=== PATIENT | female | born 1985 | race African-American/Black ===

== ENCOUNTER 2019-09-19 19:31 | Emergency (ER) | payer BC ==
--- NOTE | 2019-09-19 20:28 | ER Document Report ---
HPI - HPI Patient complains to provider of: low back pain Time Seen by Provider: 09/19/19 20:10 Onset: Other - a few weeks Onset/Duration: Persistent Quality of pain: Achy Severity: Severe Pain Level: 4 Context: 33-year-old morbidly obese female with history of high blood pressure presents to the emergency department with complaints of low back pain for the last couple weeks. Denies trauma. Denies fever vomiting diarrhea. Denies pain with void denies urinary frequency. Denies trauma. Denies urinary bowel incontinence or retention. Denies history of Iv drug use or steroid use. Denies history of cancers. Reports her back just started hurting a couple weeks ago. She did see a provider nothing has been done. She reports she is unable to sleep at night due to the pain. 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 Associated Symptoms: None Exacerbated by: Denies Relieved by: Denies Similar symptoms previously: Yes Recently seen / treated by doctor: Yes - REPRODUCTIVE LMP: Nov Past Medical History - General Information source: Patient Last Menstrual Period: july - Social History Smoking Status: Never Smoker Chew tobacco use (# tins/day): No Drug Abuse: None Occupation: office Family History: None Patient has suicidal ideation: No Patient has homicidal ideation: No - Past Medical History Cardiac Medical History: Reports: Hx Hypertension Surgical Hx: Negative Vertical Provider Document - CONSTITUTIONAL Agree With Documented VS: Yes Exam Limitations: No Limitations General Appearance: WD/WN, No Apparent Distress - INFECTION CONTROL TRAVEL OUTSIDE OF THE [place] IN LAST 30 DAYS: No - HEENT HEENT: Atraumatic, Normocephalic - NECK Neck: Supple - RESPIRATORY Respiratory: Breath Sounds Normal, No Respiratory Distress - CARDIOVASCULAR Cardiovascular: Regular Rate, Regular Rhythm - GI/ABDOMEN Gastrointestinal: Abdomen Soft, Abdomen Non-Tender - BACK Back: Normal Inspection - No obvious deformity patient complains of low back pain good distal movement no erythema no swelling no warmth. negative: CVA Tenderness-Right, CVA Tenderness-Left - MUSCULOSKELETAL/EXTREMETIES Musculoskeletal/Extremeties: TORRI MCPHERSON - NEURO Level of Consciousness: Awake, Alert, Appropriate Motor/Sensory: No Motor Deficit - DERM Integumentary: Warm, Dry Adult Front & Back Diagram: 1 - Patient reports low back pain across the entire low back. Course - Re-evaluation Re-evalutation: 09/19/19 21:13 33-year-old female presents with complaints of low back pain for the past couple weeks. Denies fever vomiting diarrhea. Denies pain with void. Reports she is woke up 1 day and it was hurting. Denies trauma. Urinalysis done to evaluate for and possible UTI which were both negative. I observed patient walking around ambulating without any problems. low suspicion for any meningitis, fracture, expanding/ruptured AAA, cauda equina syndrome, epidural mass lesion/abscess, herniated disc causing severe spinal stenosis, or other systemic infection at this time. Patient is aware that this condition can change from initial presentation and that she needs monitor symptoms closely for any acute changes. Urine Color YELLOW 09/19/19 20:25 Urine Appearance CLEAR 09/19/19 20:25 Urine pH 5.0 (5.0-9.0) 09/19/19 20:25 Ur Specific [place] 1.021 09/19/19 20:25 Urine Protein NEGATIVE mg/dL (NEGATIVE) 09/19/19 20:25 Urine Glucose (UA) 50 mg/dL (NEGATIVE) H 09/19/19 20:25 Urine Ketones NEGATIVE mg/dL (NEGATIVE) 09/19/19 20:25 Urine Blood SMALL (NEGATIVE) H 09/19/19 20:25 Urine Nitrite NEGATIVE (NEGATIVE) 09/19/19 20:25 Ur Leukocyte Esterase NEGATIVE (NEGATIVE) 09/19/19 20:25 Urine WBC (Auto) 2 /HPF 09/19/19 20:25 Urine RBC (Auto) 2 /HPF 09/19/19 20:25 09/19/19 22:06 - Vital Signs Vital signs: Temp Pulse Resp BP Pulse Ox 97.8 F 85 18 170/90 H 98 09/19/19 20:17 09/19/19 20:17 09/19/19 20:17 09/19/19 20:17 09/19/19 20:17 Discharge - Discharge Clinical Impression: Low back pain Qualifiers: Chronicity: acute Back pain laterality: bilateral Sciatica presence: without sciatica Qualified Code(s): M54.5 - Low back pain Condition: Stable Disposition: HOME, SELF-CARE Instructions: Use of Lekk-Zsu-Hvbetsa Ibuprofen ([facility]), Low Back Pain ([facility]), Muscle Relaxers ([facility]) Additional Instructions: *You have been evaluated for back pain *Take medication as prescribed *Rest , avoid heavy lifting *Follow up with a primary care provider within 1 week for recheck *Return to ED for worsening condition, changes, needs Monitor your blood pressure. Your blood pressure was elevated today. This may be because you were anxious, in pain or because you need medication. It is important to follow up with your primary care provider for full evaluation. Prescriptions: Cyclobenzaprine HCl [Flexeril 10 Mg Tablet] 10 mg PO TID #15 tablet Forms: Elevated Blood Pressure
[2019-09-19 20:52] LABS: APPEARANCE,URINE CLEAR; BILIRUBIN,URINE NEGATIVE (NEGATIVE); COLOR,URINE YELLOW; GLUCOSE, URINE 50 mg/dL (NEGATIVE); KETONES,URINE NEGATIVE (NEGATIVE); LEUKOCYTE ESTERASE,URINE NEGATIVE (NEGATIVE); NITRITE,URINE NEGATIVE (NEGATIVE); PROTEIN,URINE NEGATIVE (NEGATIVE); URINE SPECIFIC GRAVITY 1.021; UROBILINOGEN,URINE NEGATIVE mg/dL (<2.0)
[2019-09-19 21:41] VITALS: BP 160/82
== END 2019-09-19 21:41 | disposition home or self-care (01) ==
LOC: ER 19:31
DX: M54.5 Low back pain (principal)
CPT/HCPCS: 81001; 81025; 99283

== ENCOUNTER 2019-09-20 22:14 | Emergency (ER) | payer BC ==
[2019-09-21] MEDS ORDERED: FENTANYL CITRATE INJ/PF 100 MCG/2 ML AMPUL IV ONE (01:27)
[2019-09-21 01:31] LABS: ABSOLUTE EOSINOPHILS # (AUTO) 0.1 10^3/uL (0.0-0.6); ABSOLUTE LYMPHOCYTES (AUTO) 1.2 10^3/uL (0.5-4.7); ABSOLUTE MONOCYTES (AUTO) 0.5 10^3/uL (0.1-1.4); ABSOLUTE NEUT (AUTO) 6.6 10^3/uL (1.7-8.2); BASOPHILS % (AUTO) 0.4 % (0-2); EOSINOPHILS % (AUTO) 1.2 % (0-6); HEMATOCRIT 34.4 % (36.0-47.0); LYMPHOCYTES % (AUTO) 13.9 % (13-45); MEAN CORPUSCULAR HEMOGLOBIN 25.7 pg (27.0-33.4); MEAN CORPUSCULAR HGB CONC 31.9 g/dL (32.0-36.0); MEAN CORPUSCULAR VOLUME 81 fl (80-97); MONOCYTES % (AUTO) 6.3 % (3-13); PLATELET COUNT 329 10^3/uL (150-450); RED BLOOD COUNT 4.27 10^6/uL (3.72-5.28); RED CELL DISTRIBUTION WIDTH 17.4 % (11.5-14.0); SEGMENTED NEUTROPHILS % (AUTO) 78.2 % (42-78); TOTAL CELLS COUNTED % (AUTO) 100 %; WHITE BLOOD COUNT 8.4 10^3/uL (4.0-10.5)
[2019-09-21 01:42] LABS: ALBUMIN 3.7 g/dL (3.5-5.0); ALKALINE PHOSPHATASE 60 U/L (38-126); ANION GAP 7 (5-19); ASPARTATE AMINO TRANSFERASE 22 U/L (14-36); BILIRUBIN,DIRECT 0.1 mg/dL (0.0-0.4); BILIRUBIN,TOTAL 0.8 mg/dL (0.2-1.3); BLOOD UREA NITROGEN 9 mg/dL (7-20); CARBON DIOXIDE 28 mmol/L (22-30); CHLORIDE 103 mmol/L (98-107); GLUCOSE 180 mg/dL (75-110); POTASSIUM 4.1 mmol/L (3.6-5.0); TOTAL PROTEIN 7.1 g/dL (6.3-8.2)
[2019-09-21 02:46] LABS: APPEARANCE,URINE CLOUDY; BILIRUBIN,URINE NEGATIVE (NEGATIVE); COLOR,URINE YELLOW; GLUCOSE, URINE NEGATIVE (NEGATIVE); KETONES,URINE NEGATIVE (NEGATIVE); LEUKOCYTE ESTERASE,URINE MODERATE (NEGATIVE); NITRITE,URINE NEGATIVE (NEGATIVE); PROTEIN,URINE NEGATIVE (NEGATIVE); URINE SPECIFIC GRAVITY 1.018; UROBILINOGEN,URINE NEGATIVE mg/dL (<2.0)
--- NOTE | 2019-09-21 03:17 | RADIOLOGY REPORT (SQ) ---
EXAM DESCRIPTION: [facility]: CT ABDOMEN PELVIS WITH IV CONTRAST CLINICAL HISTORY: 33 years Female; Abdominal pain TECHNIQUE: CT of the abdomen and pelvis using intravenous contrast. All CT scans at this facility use dose modulation, iterative reconstruction, and/or weight based dosing when appropriate to reduce radiation dose to as low as reasonably achievable. COMPARISON: None. FINDINGS: Abdomen: Liver:No focal lesions. No intrahepatic ductal distention. Gallbladder:Nondistended Pancreas:Within normal limits Spleen:Within normal limits Right kidney:No hydronephrosis. No focal lesion. Left kidney:No hydronephrosis. No focal lesion. Adrenal glands:Within normal limits Vascular structures:Within normal limits Pelvis: Small bowel:No significant distention. Appendix:Within normal limits Colon:No distention or acute pericolonic edema. No free intraperitoneal fluid or air. Bones: No acute bone findings. Bladder: Unremarkable. Uterus: Endometrial canal approximately 2 cm, somewhat enlarged. There are several subtle myometrial hypodensities, suspicious for fibroids. Left ovary: Low-density lesion 3.7 cm diameter, likely cyst. No adjacent edema. No right adnexal enlargement. IMPRESSION: 1. 3.7 cm low-density left ovarian lesion, likely cyst. No follow-up imaging is indicated, unless there is clinical concern for ovarian torsion. 2. Thickened endometrial canal, likely secretory phase. Please correlate with LMP. There are likely several uterine fibroids. 3. Otherwise unremarkable CT of the abdomen and pelvis.
[2019-09-21 03:18] VITALS: BP 157/72
[2019-09-21] MEDS ORDERED: HYDROCODONE/ACETAMINOPHEN 5-325 MG (6 TAB/ER DISP) PO PRN (03:47)
[2019-09-21] MEDS ORDERED: CEPHALEXIN 500 MG CAPSULE PO ONE (03:47)
[2019-09-21] MEDS ORDERED: ONDANSETRON ODT 4 MG TAB (6 TAB/ER DISP) PO PRN (03:47)
--- NOTE | 2019-09-21 03:51 | ER Document Report ---
ED GI/ - General Chief Complaint: Abdominal Pain Stated Complaint: ABDOMINAL PAIN Time Seen by Provider: 09/21/19 02:57 Notes: Patient is a 33-year-old female that comes emergency department for chief complaint of abdominal pain. Pain is on both sides but worse in the left lower abdomen. Pain is intermittent, she denies nausea, vomiting, fever/chills, vaginal bleeding or discharge. She denies dysuria. She also states the skin over the lower abdomen is starting to get red, irritated, and she is worried it is getting infected. She was seen yesterday for flank pain and prescribed Flexeril. Past medical history of hypertension, tonsillectomy, type 2 diabetes, obesity. She also states she missed her previous menstrual cycle. TRAVEL OUTSIDE OF THE [place] IN LAST 30 DAYS: No - Related Data Allergies/Adverse Reactions: lisinopril Allergy (Verified 09/19/19 20:09) Home Medications: Glipazide. Lasix Past Medical History - General Information source: Patient - Social History Smoking Status: Never Smoker Frequency of alcohol use: None Drug Abuse: None Lives with: Family Family History: None Patient has suicidal ideation: No Patient has homicidal ideation: No - Past Medical History Cardiac Medical History: Reports: Hx Hypertension Review of Systems - Review of Systems Constitutional: No symptoms reported EENT: No symptoms reported Cardiovascular: No symptoms reported Respiratory: No symptoms reported Gastrointestinal: See HPI Genitourinary: No symptoms reported Female Genitourinary: No symptoms reported Musculoskeletal: No symptoms reported Skin: No symptoms reported Hematologic/Lymphatic: No symptoms reported Neurological/Psychological: No symptoms reported Physical Exam - Vital signs Vitals: Temp Pulse Resp BP Pulse Ox 99.2 F 88 24 H 176/96 H 100 09/20/19 22:36 09/20/19 22:36 09/20/19 22:36 09/20/19 22:36 09/20/19 22:36 - Notes Notes: GENERAL: Alert, interacts well. No acute distress. HEAD: Normocephalic, atraumatic. EYES: Pupils equal, round, and reactive to light. Extraocular movements intact. ENT: Oral mucosa moist, tongue midline. Oropharynx unremarkable. Airway patent. LUNGS: Clear to auscultation bilaterally, no wheezes, rales, or rhonchi. No respiratory distress. HEART: Regular rate and rhythm. No murmur ABDOMEN: Generalized lower abdominal tenderness, equal bilaterally. No guarding or rigidity. GENITOURINARY: Deferred EXTREMITIES: Moves all 4 extremities spontaneously. No edema, normal radial and dorsalis pedis pulses bilaterally. No cyanosis. BACK: no cervical, thoracic, lumbar midline tenderness. No saddle anesthesia, normal distal neurovascular exam. Moves all extremities in full range of motion. NEUROLOGICAL: Alert and oriented x3. Normal speech. Cranial nerves II through XII grossly intact. PSYCH: Normal affect, normal mood. SKIN: Lower abdomen with an area over the left aspect just above the groin which is mildly erythematous and tender, no induration or fluctuance, possible mild folliculitis versus cellulitis. Course - Re-evaluation Re-evalutation: Patient calm and well-appearing on evaluation. She has generalized abdominal tenderness in the mid to lower abdomen on both sides. Nonspecific. No guarding. No rigidity. Bowel sounds present. Vital signs unremarkable other than hypertension which is chronic. She has no back symptoms today. No fever. There is an area over the lower abdomen which appears to be mild folliculitis versus early developing cellulitis but no induration or fluctuance is noted. Provided with Keflex after discussion. CBC, chemistry, urinalysis unremarkable. CAT scan imaging performed from triage shows left-sided ovarian cyst, uterine fibroids, otherwise unremarkable. I discussed with patient. Based on her exam I have a low suspicion of torsion, we did discuss ultrasound but this was deferred. I discussed details of uterine fibroids and cyst, recommendations, TECHNOLOGY RESOURCE TEACHER follow-up, and return precautions. Patient states appreciation and agreement. Stable at time of discharge. - Vital Signs Vital signs: Temp Pulse Resp BP Pulse Ox 98.7 F 75 20 157/72 H 97 09/21/19 03:17 09/21/19 03:17 09/21/19 03:17 09/21/19 03:17 09/21/19 03:17 - Laboratory Result Diagrams: 09/21/19 01:12 09/21/19 01:12 Laboratory results interpreted by me: 09/21/19 09/21/19 09/21/19 01:12 01:12 02:30 Hgb 11.0 L Hct 34.4 L MCH 25.7 L MCHC 31.9 L RDW 17.4 H Seg Neutrophils % 78.2 H Glucose 180 H Urine Blood LARGE H Ur Leukocyte Esterase MODERATE H Discharge - Discharge Clinical Impression: Abdominal pain Qualifiers: Abdominal location: lower abdomen, unspecified Qualified Code(s): R10.30 - Lower abdominal pain, unspecified Uterine fibroid Qualifiers: Uterine leiomyoma location: unspecified location Qualified Code(s): D25.9 - Leiomyoma of uterus, unspecified Ovarian cyst Qualifiers: Laterality: left Qualified Code(s): N83.202 - Unspecified ovarian cyst, left side Condition: Stable Disposition: HOME, SELF-CARE Additional Instructions: There is a cyst on your left ovary, this appears to be a simple cyst and should simply resolve with time, take the provided pain medicine if needed. This medication can make you constipated, you have been provided with a stool softener that I can recommend as well. There are uterine fibroids noted on your uterus, please follow-up with TECHNOLOGY RESOURCE TEACHER for additional evaluation for abdominal pain and irregular menstrual cycles because of this. You can take the Toradol if needed for pain. There is a borderline folliculitis over the lower abdomen as well, take Keflex antibiotics as prescribed to completion. Return if you worsen including vomiting, fever, severe worsening pain, or any other concerning or worsening symptoms. Prescriptions: Ketorolac Tromethamine [Toradol 10 mg Tablet] 10 mg PO Q8HP PRN #24 tablet PRN Reason: Cephalexin Monohydrate [Keflex 500 mg Capsule] 500 mg PO QID #28 capsule Polyethylene Glycol 3350 [Miralax Powder 17 gm/Packet] 1 packet PO DAILY #1 pkg Forms: Return to Work, Elevated Blood Pressure
== END 2019-09-21 04:11 | disposition home or self-care (01) ==
LOC: ER 22:14
DX: R10.32 Left lower quadrant pain (principal); N83.202 Unspecified ovarian cyst, left side; D25.9 Leiomyoma of uterus, unspecified; I10 Essential (primary) hypertension; E11.9 Type 2 diabetes mellitus without complications; E66.9 Obesity, unspecified
CPT/HCPCS: 99284; 96374; 36415; 83690; 84703; 85025; 80053; 81001; 74177; J3010

== ENCOUNTER → 2019-10-17 | Outpatient (CLI) | payer BC ==
[2019-10-17 09:10] LABS: ABSOLUTE EOSINOPHILS # (AUTO) 0.1 10^3/uL (0.0-0.6); ABSOLUTE LYMPHOCYTES (AUTO) 1.4 10^3/uL (0.5-4.7); ABSOLUTE MONOCYTES (AUTO) 0.3 10^3/uL (0.1-1.4); ABSOLUTE NEUT (AUTO) 3.5 10^3/uL (1.7-8.2); BASOPHILS % (AUTO) 0.3 % (0-2); EOSINOPHILS % (AUTO) 1.6 % (0-6); HEMATOCRIT 36.1 % (36.0-47.0); HEMOGLOBIN 11.7 g/dL (12.0-15.5); LYMPHOCYTES % (AUTO) 25.7 % (13-45); MEAN CORPUSCULAR HEMOGLOBIN 26.4 pg (27.0-33.4); MEAN CORPUSCULAR HGB CONC 32.4 g/dL (32.0-36.0); MEAN CORPUSCULAR VOLUME 81 fl (80-97); MONOCYTES % (AUTO) 5.7 % (3-13); PLATELET COUNT 385 10^3/uL (150-450); RED BLOOD COUNT 4.45 10^6/uL (3.72-5.28); RED CELL DISTRIBUTION WIDTH 17.9 % (11.5-14.0); SEGMENTED NEUTROPHILS % (AUTO) 66.7 % (42-78); TOTAL CELLS COUNTED % (AUTO) 100 %; WHITE BLOOD COUNT 5.3 10^3/uL (4.0-10.5)
[2019-10-17 09:37] LABS: ALBUMIN 4.2 g/dL (3.5-5.0); ALKALINE PHOSPHATASE 65 U/L (38-126); ANION GAP 9 (5-19); ASPARTATE AMINO TRANSFERASE 46 U/L (14-36); BILIRUBIN,TOTAL 0.6 mg/dL (0.2-1.3); BLOOD UREA NITROGEN 14 mg/dL (7-20); CALCIUM 9.8 mg/dL (8.4-10.2); CARBON DIOXIDE 25 mmol/L (22-30); CHLORIDE 105 mmol/L (98-107); GLUCOSE 207 mg/dL (75-110); POTASSIUM 4.5 mmol/L (3.6-5.0); TOTAL PROTEIN 7.4 g/dL (6.3-8.2)
--- NOTE | 2019-10-17 13:14 | RADIOLOGY REPORT (SQ) ---
EXAM DESCRIPTION: CHEST SINGLE VIEW COMPLETED DATE/TIME: 10/17/2019 8:17 am REASON FOR STUDY: OBESITY, UNSPECIFIED COMPARISON: None. EXAM PARAMETERS: NUMBER OF VIEWS: One view. TECHNIQUE: Single frontal radiographic view of the chest acquired. RADIATION DOSE: NA LIMITATIONS: None. FINDINGS: LUNGS AND PLEURA: No opacities, masses or pneumothorax. No pleural effusion. MEDIASTINUM AND HILAR STRUCTURES: No masses. Contour normal. HEART AND VASCULAR STRUCTURES: Heart normal in size. Normal vasculature. BONES: No acute findings. HARDWARE: None in the chest. OTHER: No other significant finding. IMPRESSION: NO ACUTE RADIOGRAPHIC FINDING IN THE CHEST. TECHNICAL DOCUMENTATION: JOB ID: [id number] [employer]- All Rights Reserved Reading location - IP/workstation name: [email or web address]
--- NOTE | 2019-10-17 18:37 | EKG REPORT ---
SEVERITY:- BORDERLINE ECG - SINUS RHYTHM BORDERLINE T ABNORMALITIES, INFERIOR LEADS : Confirmed by: Alena Lopez MD 17-Oct-2019 18:36:10
== END ==
LOC: OD 07:40
PROVIDERS: ATTEND Surgery
DX: E66.9 Obesity, unspecified (principal)
CPT/HCPCS: 36415; 71045; 80053; 84443; 85025; 93005; 93010

== ENCOUNTER 2019-12-03 18:18 | Emergency (ER) | payer BC ==
[2019-12-03 18:24] VITALS: BP 159/88
--- NOTE | 2019-12-03 18:34 | ER Document Report ---
ED Medical Screen (RME) - General Chief Complaint: Vaginal Bleeding Stated Complaint: WEAKNESS Time Seen by Provider: 12/03/19 18:27 Primary Care Provider: SAVITA CABA [Primary Care Provider] - Follow up as needed Information source: Patient Notes: Patient presents for dysfunctional uterine bleeding for the past 3 months. 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 Patient states she had been switched from Provera to a different medication in an attempt to stop the vaginal bleeding. Patient states she has had headache and dizziness and was told that she may need a transfusion or D&C and was advised to come here for further evaluation. I have greeted and performed a rapid initial assessment of this patient. A comprehensive ED assessment and evaluation of the patient, analysis of test results and completion of the medical decision making process will be conducted by additional ED providers. TRAVEL OUTSIDE OF THE [place] IN LAST 30 DAYS: No - Related Data Allergies/Adverse Reactions: lisinopril Allergy (Verified 12/03/19 18:24) Home Medications: fersega. metformin. agestin. atorvastatin. hydrocodone. toradol Past Medical History - Social History Frequency of alcohol use: None Drug Abuse: None - Past Medical History Cardiac Medical History: Reports: Hx Hypertension Physical Exam - Vital signs Vitals: Temp Pulse Resp BP Pulse Ox 99.0 F 88 16 159/88 H 100 12/03/19 18:23 12/03/19 18:23 12/03/19 18:23 12/03/19 18:23 12/03/19 18:23 - General General appearance: Appears well, Alert Notes: Patient pale - Cardiovascular Rhythm: No: Tachycardia Course - Vital Signs Vital signs: Temp Pulse Resp BP Pulse Ox 99.0 F 88 16 159/88 H 100 12/03/19 18:23 12/03/19 18:23 12/03/19 18:23 12/03/19 18:23 12/03/19 18:23 Doctor's Discharge - Discharge Referrals: SAVITA CABA [Primary Care Provider] - Follow up as needed
--- NOTE | 2019-12-03 19:16 | ER Document Report ---
ED GI/ - General Chief Complaint: Vaginal Bleeding Stated Complaint: WEAKNESS Time Seen by Provider: 12/03/19 18:27 Primary Care Provider: [facility] [Provider Group] - Follow up as needed SAVITA CABA [Primary Care Provider] - Follow up as needed Mode of Arrival: Ambulatory Information source: Patient Notes: 33-year-old female presented to ED for complaint of dysfunctional bleeding x3 months. She states she saw her captain/check airman last and had a biopsy in the office. She states she was switched from one Provera to a different kind of medication to stop the bleeding. She states she has had some headache and dizziness and was told by her ema that she may need a D&C or a transfusion that she should come to the emergency room and be evaluated. Patient is alert oriented respirations regular nonlabored speaking in full sentences. TRAVEL OUTSIDE OF THE [place] IN LAST 30 DAYS: No - HPI Patient complains to provider of: Pelvic pain, Vaginal bleeding Onset: Other Timing/Duration: Gradual - Ongoing, Intermittent Quality of pain: Sharp Severity at maximum: Moderate Severity in ED: Moderate Pain Level: 4 Location: Pelvis Vaginal bleeding (Compared to normal period): Spotting Associated symptoms: Other - Vaginal bleeding Exacerbated by: Movement, Walking Relieved by: Denies Similar symptoms previously: Yes Recently seen / treated by doctor: Yes - Related Data Allergies/Adverse Reactions: lisinopril Allergy (Verified 12/03/19 18:24) Home Medications: fersega. metformin. agestin. atorvastatin. hydrocodone. toradol Past Medical History - General Information source: Patient - Social History Smoking Status: Never Smoker Frequency of alcohol use: None Drug Abuse: None Lives with: Family Family History: None Patient has suicidal ideation: No Patient has homicidal ideation: No - Past Medical History Cardiac Medical History: Reports: Hx Hypertension Pulmonary Medical History: Reports: None EENT Medical History: Reports: None Neurological Medical History: Reports: None Endocrine Medical History: Reports: None Renal/ Medical History: Reports: Other - Dysfunctional bleeding Malignancy Medical History: Reports: None GI Medical History: Reports: None Musculoskeletal Medical History: Reports None Skin Medical History: Reports None Psychiatric Medical History: Reports: None Traumatic Medical History: Reports: None Infectious Medical History: Reports: None Surgical Hx: Negative Past Surgical History: Reports: None Review of Systems - Review of Systems Constitutional: No symptoms reported EENT: No symptoms reported Cardiovascular: No symptoms reported Respiratory: No symptoms reported Gastrointestinal: No symptoms reported Genitourinary: No symptoms reported Female Genitourinary: Heavy/abnormal periods, Other - Pelvic pain Musculoskeletal: No symptoms reported Skin: No symptoms reported Hematologic/Lymphatic: Anemia Neurological/Psychological: No symptoms reported -: Yes All other systems reviewed and negative Physical Exam - Vital signs Vitals: Temp Pulse Resp BP Pulse Ox 99.0 F 88 16 159/88 H 100 12/03/19 18:23 12/03/19 18:23 12/03/19 18:23 12/03/19 18:23 12/03/19 18:23 Interpretation: Normal - General General appearance: Appears well, Alert - HEENT Head: Normocephalic, Atraumatic Eyes: Normal Pupils: PERRL - Respiratory Respiratory status: No respiratory distress Chest status: Nontender Breath sounds: Normal Chest palpation: Normal - Cardiovascular Rhythm: Regular Heart sounds: Normal auscultation Murmur: No - Abdominal Inspection: Normal Distension: No distension Bowel sounds: Normal Tenderness: Nontender Organomegaly: No organomegaly - Genitourinary External exam: Normal Speculum exam: Normal Vaginal bleeding: Mild Bimanuel exam: Normal - Back Back: Normal, Nontender - Extremities General upper extremity: Normal inspection, Nontender, Normal color, Normal ROM, Normal temperature General lower extremity: Normal inspection, Nontender, Normal color, Normal ROM, Normal temperature, Normal weight bearing. No: Shanna's sign - Neurological Neuro grossly intact: Yes Cognition: Normal Orientation: AAOx4 Roscoe Coma Scale Eye Opening: Spontaneous Roscoe Coma Scale Verbal: Oriented Roscoe Coma Scale Motor: Obeys Commands Roscoe Coma Scale Total: 15 Speech: Normal Motor strength normal: LUE, RUE, LLE, RLE Sensory: Normal - Psychological Associated symptoms: Normal affect, Normal mood - Skin Skin Temperature: Warm Skin Moisture: Dry Skin Color: Normal Course - Re-evaluation Re-evalutation: 12/03/19 21:26 This patient was very angry because she did not get a blood transfusion for him hemoglobin of 9.6 she used very foul language throughout her stay and was very impatient and said that this hospital never gives proper treatment. She states she was sent over here for blood transfusion and we did not give her 1. She states she was told that she needed a D&C and we did not follow through with this. I did explain to her that at this time she had very minimal bleeding on her exam and she did not need a D&C at this time for what I could see and that her hemoglobin was not to the point that she would need a blood transfusion. She states that her blood hemoglobin was 9.6 the last time she saw someone and they told her she needed a transfusion I explained to her that we do not do transfusions when their hemoglobins are above 8 unless they are actively bleeding and she is not having a lot of blood at this time. She cursed and left before getting her written discharge papers. I did give her verbal instructions as well as the written reports of the lab work. She was very rude as she left the emergency room. - Vital Signs Vital signs: Temp Pulse Resp BP Pulse Ox 99.0 F 88 16 159/88 H 100 12/03/19 18:23 12/03/19 18:23 12/03/19 18:23 12/03/19 18:23 12/03/19 18:23 - Laboratory Result Diagrams: 12/03/19 19:53 12/03/19 19:53 Laboratory results interpreted by me: 12/03/19 12/03/19 19:53 19:53 Hgb 9.6 L Hct 30.1 L MCH 25.5 L RDW 16.2 H Chloride 108 H Discharge - Discharge Clinical Impression: Abnormal uterine bleeding, Mild anemia Condition: Stable Disposition: HOME, SELF-CARE Additional Instructions: VAGINAL BLEEDING: You are having an episode of abnormal bleeding. Causes of abnormal vaginal bleeding can include miscarriage or tubal , tumors such as cancer or benign fibroids, medication effects, or hormone imbalance. Testing can eliminate unsuspected , tumors, or infection as a cause. "Dysfunctional uterine bleeding" is due to hormone imbalance, and is especially common at times when the normal cycle is disturbed -- whether by recent , use of control pills or hormones, or impending menopause. If the bleeding is innocent, most commonly a short course of hormones is given to restore the uterus to normal. Sometimes, the normal menstrual cycle corrects itself naturally. Sometimes, brief hormone therapy, or even a D&C is required. Your physician will advise you. Treatment for anemia may be required if bleeding is severe. You should rest and avoid intercourse until the bleeding is controlled. Call the doctor or return for re-examination if you feel faint, have increasing pain, or have a major increase in the amount of bleeding. NORMAL EXAM AND WORKUP: At this time, except for vaginal bleeding, your examination and workup show no significant abnormality. No significant abnormal physical findings were noted. All laboratory, EKG, and imaging (x-ray, CT scans, ultrasound) studies that were ordered show no significant abnormality. Although your examination and all studies that were ordered showed no significant abnormal finding, there are no examinations and no studies that are 100% accurate. There is always the possibility that some abnormality could exist and not be detected with physical examination or within the limits and capabilities of laboratory and other studies. You should return or follow up as you were instructed on your visit today for further evaluation if your symptoms do not resolve. Continue your medications as prescribed by your LICENSE INSPECTOR. Your hemoglobin today was 9.6 and you do not need a blood transfusion at this time. Please follow-up with the LICENSE INSPECTOR and discuss with them your plan of care from here. There was very minimal bleeding on your exam today. FOLLOW-UP CARE: If you have been referred to a physician for follow-up care, call the physicians office for an appointment as you were instructed or within the next two days. If you experience worsening or a significant change in your symptoms (very heavy bleeding with large clots of blood, passage of tissue, more severe abdominal / pelvic pain or cramping, feeling faint or severe weakness, fever, etc.), notify the physician immediately or return to the Emergency Department at any time for re-evaluation. OBSTETRIC-GYNECOLOGIC (OB-LUMP INSPECTOR) PHYSICIANS IN [place]: [facility] [address] [place] [address] [phone] Forms: Elevated Blood Pressure Referrals: SAVITA CABA [Primary Care Provider] - Follow up as needed [facility] [Provider Group] - Follow up as needed
[2019-12-03 20:09] LABS: BACTERIA (WET MOUNT) 4+ BACTERIA SEEN; EPITHELIALS (WET MOUNT) 3+ EPITHELIALS SEEN; RBCS (WET MOUNT) 4+ RBCS SEEN; T.VAGINALIS (WET MOUNT) NO TRICHOMONAS SEEN; WBCS (WET MOUNT) 2+ WBCS SEEN; YEAST (WET MOUNT) NO YEAST SEEN
[2019-12-03 20:11] LABS: ABSOLUTE EOSINOPHILS # (AUTO) 0.1 10^3/uL (0.0-0.6); ABSOLUTE LYMPHOCYTES (AUTO) 2.2 10^3/uL (0.5-4.7); ABSOLUTE MONOCYTES (AUTO) 0.5 10^3/uL (0.1-1.4); ABSOLUTE NEUT (AUTO) 4.8 10^3/uL (1.7-8.2); BASOPHILS % (AUTO) 0.4 % (0-2); EOSINOPHILS % (AUTO) 1.8 % (0-6); HEMATOCRIT 30.1 % (36.0-47.0); HEMOGLOBIN 9.6 g/dL (12.0-15.5); LYMPHOCYTES % (AUTO) 28.6 % (13-45); MEAN CORPUSCULAR HEMOGLOBIN 25.5 pg (27.0-33.4); MEAN CORPUSCULAR VOLUME 80 fl (80-97); MONOCYTES % (AUTO) 6.8 % (3-13); PLATELET COUNT 412 10^3/uL (150-450); RED BLOOD COUNT 3.78 10^6/uL (3.72-5.28); RED CELL DISTRIBUTION WIDTH 16.2 % (11.5-14.0); SEGMENTED NEUTROPHILS % (AUTO) 62.4 % (42-78); TOTAL CELLS COUNTED % (AUTO) 100 %; WHITE BLOOD COUNT 7.7 10^3/uL (4.0-10.5)
[2019-12-03 20:32] LABS: ALBUMIN 4.1 g/dL (3.5-5.0); ALKALINE PHOSPHATASE 51 U/L (38-126); ANION GAP 9 (5-19); ASPARTATE AMINO TRANSFERASE 22 U/L (14-36); BILIRUBIN,DIRECT 0.2 mg/dL (0.0-0.4); BILIRUBIN,TOTAL 0.7 mg/dL (0.2-1.3); BLOOD UREA NITROGEN 15 mg/dL (7-20); CALCIUM 9.5 mg/dL (8.4-10.2); CARBON DIOXIDE 24 mmol/L (22-30); CHLORIDE 108 mmol/L (98-107); GLUCOSE 103 mg/dL (75-110); POTASSIUM 4.3 mmol/L (3.6-5.0); TOTAL PROTEIN 7.4 g/dL (6.3-8.2)
--- NOTE | 2019-12-03 21:34 | EKG REPORT ---
SEVERITY:- ABNORMAL ECG - SINUS RHYTHM CONSIDER LEFT VENTRICULAR HYPERTROPHY BORDERLINE T ABNORMALITIES, INFERIOR LEADS : Confirmed by: Edward Oliveros MD 03-Dec-2019 21:34:04
[2019-12-03 21:37] LABS: CHLAM PCR NOT DETECTED (NOT DETECT)
== END 2019-12-03 21:10 | disposition home or self-care (01) ==
LOC: ER 18:18
DX: N93.8 Other specified abnormal uterine and vaginal bleeding (principal); D64.9 Anemia, unspecified; R53.1 Weakness; I10 Essential (primary) hypertension; Z79.4 Long term (current) use of insulin
CPT/HCPCS: 36415; 80053; 84703; 85025; 86850; 86900; 86901; 87210; 87491; 87591; 93005; 93010; 99284

== ENCOUNTER → 2019-12-05 | Outpatient (CLI) | payer BC ==
[2019-12-05 12:02] LABS: A TYPE INFLUENZA AG NEGATIVE (NEGATIVE); B INFLUENZA AG NEGATIVE (NEGATIVE)
== END ==
LOC: RDC 11:04
PROVIDERS: ATTEND Registered Nurse
DX: Z20.828 Contact with and (suspected) exposure to other viral communicable diseases (principal)
CPT/HCPCS: 87070; 87635; 87804; 87880

== ENCOUNTER 2020-08-16 09:52 | Emergency (ER) | payer BC ==
--- NOTE | 2020-08-16 10:13 | ER Document Report ---
ED Medical Screen (RME) - General Chief Complaint: Vag Bleeding, +preg <12wks Stated Complaint: VAGINAL BLEEDING Time Seen by Provider: 08/16/20 10:08 Primary Care Provider: EVA CULLEN MD [Primary Care Provider] - Follow up as needed Mode of Arrival: Ambulatory Information source: Patient Notes: HPI; 34-year-old female 6 para 2 with a recent in May presents to the emergency room complaining of intermittent spotting that started last week. Patient states it has been stopped and she started spotting again last night. Not having to wear a pad. Denies any pain. She believes she is about 7 weeks . Her last menstrual cycle was June 22. Her first OB appointment is next week. Rh+ confirmed by previous visits. PE: Alert and oriented x3. Mild distress noted. Lungs: Clear to auscultation without rales, rhonchi, wheezes. Heart: Regular rate rhythm without murmurs, rubs, gallops. I have greeted and performed a rapid initial assessment of this patient. A comprehensive ED assessment and evaluation of the patient, analysis of test results and completion of the medical decision making process will be conducted by additional ED providers. I have specifically instructed the patient or family members with the patient to immediately return to any nursing staff should anything change in the patient's condition or with their chief complaint. TRAVEL OUTSIDE OF THE [place] IN LAST 30 DAYS: No - Related Data Allergies/Adverse Reactions: lisinopril Allergy (Verified 12/03/19 18:24) ibuprofen [From Motrin] Adverse Reaction (Verified 08/16/20 09:57) vancomycin Adverse Reaction (Verified 08/16/20 09:57) Past Medical History - Past Medical History Cardiac Medical History: Reports: Hx Hypertension Endocrine Medical History: Reports: Hx Diabetes Mellitus Type 2 Past Surgical History: Reports: Hx Abdominal Surgery - gastric bipass Physical Exam - Vital signs Vitals: Temp Pulse Resp BP Pulse Ox 98.8 F 74 16 169/92 H 99 08/16/20 09:55 08/16/20 09:55 08/16/20 09:55 08/16/20 09:55 08/16/20 09:55 Course - Vital Signs Vital signs: Temp Pulse Resp BP Pulse Ox 98.8 F 74 16 169/92 H 99 08/16/20 09:55 08/16/20 09:55 08/16/20 09:55 08/16/20 09:55 08/16/20 09:55 Doctor's Discharge - Discharge Referrals: VEA CULLEN MD [Primary Care Provider] - Follow up as needed
[2020-08-16 10:36] LABS: ABSOLUTE EOSINOPHILS # (AUTO) 0.1 10^3/uL (0.0-0.6); ABSOLUTE LYMPHOCYTES (AUTO) 1.4 10^3/uL (0.5-4.7); ABSOLUTE MONOCYTES (AUTO) 0.4 10^3/uL (0.1-1.4); ABSOLUTE NEUT (AUTO) 3.3 10^3/uL (1.7-8.2); BASOPHILS % (AUTO) 0.2 % (0-2); EOSINOPHILS % (AUTO) 1.4 % (0-6); HEMATOCRIT 33.4 % (36.0-47.0); HEMOGLOBIN 10.8 g/dL (12.0-15.5); LYMPHOCYTES % (AUTO) 26.5 % (13-45); MEAN CORPUSCULAR HEMOGLOBIN 27.2 pg (27.0-33.4); MEAN CORPUSCULAR HGB CONC 32.3 g/dL (32.0-36.0); MEAN CORPUSCULAR VOLUME 84 fl (80-97); MONOCYTES % (AUTO) 6.9 % (3-13); PLATELET COUNT 322 10^3/uL (150-450); RED BLOOD COUNT 3.97 10^6/uL (3.72-5.28); RED CELL DISTRIBUTION WIDTH 16.1 % (11.5-14.0); TOTAL CELLS COUNTED % (AUTO) 100 %; WHITE BLOOD COUNT 5.1 10^3/uL (4.0-10.5)
[2020-08-16 10:55] LABS: ALBUMIN 3.9 g/dL (3.5-5.0); ALKALINE PHOSPHATASE 63 U/L (38-126); ANION GAP 8 (5-19); ASPARTATE AMINO TRANSFERASE 20 U/L (14-36); BLOOD UREA NITROGEN 6 mg/dL (7-20); CALCIUM 9.4 mg/dL (8.4-10.2); CARBON DIOXIDE 26 mmol/L (22-30); CHLORIDE 106 mmol/L (98-107); GLUCOSE 90 mg/dL (75-110); POTASSIUM 3.6 mmol/L (3.6-5.0)
--- NOTE | 2020-08-16 11:50 | RADIOLOGY REPORT (SQ) ---
EXAM DESCRIPTION: U/S OB TRANSVAG W/DOPPLER IMAGES COMPLETED DATE/TIME: 08/16/2020 8:33 am REASON FOR STUDY: vaginal bleeding COMPARISON: None. TECHNIQUE: Transabdominal static and realtime grayscale images acquired of the pelvis. Additional se lected spectral and color Doppler images recorded. All images stored on PACs. bHCG: Not available. CLINICAL DATES: 7 weeks and 6 days LIMITATIONS: None. FINDINGS: FETUS: Single Living intrauterine . ULTRASOUND EGA: 7 weeks and 3 day ULTRASOUND GENNA: 04/01/2021 EFW: Not applicable less than 20 weeks. CRL: 1.3 cm FHR: 162 beats per minute. SURVEY: Too early to assess. AMNIOTIC FLUID: Adequate amount. PLACENTA: Not yet developed due to early gestation. SUBCHORIONIC BLEED: No. SIZE OF BLEED: Not applicable. UTERUS: No masses. No anomalies. CERVICAL LENGTH: 3.2 cm Closed. RIGHT ADNEXA: Ovary not identified due to poor acoustical window. No adnexal free fluid. No adnexal masses. LEFT ADNEXA: Normal ovary with normal vascular flow. No adnexal free fluid. No adnexal masses. FREE FLUID: None. OTHER: No other significant finding. IMPRESSION: LIVING INTRAUTERINE . EGA 7 weeks and 3 days Trimester of : First trimester - 0 to 13 weeks. TECHNICAL DOCUMENTATION: JOB ID: [id number] [employer]- All Rights Reserved Reading location - IP/workstation name: [id number]
[2020-08-16 11:57] LABS: APPEARANCE,URINE CLOUDY; BILIRUBIN,URINE NEGATIVE (NEGATIVE); COLOR,URINE YELLOW; GLUCOSE, URINE NEGATIVE (NEGATIVE); KETONES,URINE NEGATIVE (NEGATIVE); LEUKOCYTE ESTERASE,URINE LARGE (NEGATIVE); NITRITE,URINE NEGATIVE (NEGATIVE); PROTEIN,URINE 30 mg/dL (NEGATIVE); URINE SPECIFIC GRAVITY 1.018
--- NOTE | 2020-08-16 12:49 | ER Document Report ---
Entered by DEANDRE THAO SCRIBE 08/16/20 1037 Acting as scribe for:NATALIO RENDON MD ED GI/ - General Chief Complaint: Vag Bleeding, +preg <12wks Stated Complaint: VAGINAL BLEEDING Time Seen by Provider: 08/16/20 10:08 Primary Care Provider: EVA CULLEN MD [NO LOCAL MD] - Follow up as needed Mode of Arrival: Ambulatory Information source: Patient Notes: This 34 year old female patient, A3 (last miscarriage in 05/2020), approximately x7 weeks presents to the ED today with complaints of intermittent vaginal bleeding for the past x1 week. Patient reports bright red vaginal bleeding last night with small clots while in the shower and states it was light pink this morning. She reports associated mild abdominal cramping and nausea without emesis. Denies any fever, chills, or back pain. Last menstrual period was 06/22/2020. Blood type is A+. Her [facility]PT[facility] SPINNER is Dr. Gregorio in [place], first appointment is scheduled for next week. Patient mentions that she had a gastric sleeve done in 02/2020, found out she was in 03/2020, and miscarried in 05/2020; she states that she had to have a D&C at that time. TRAVEL OUTSIDE OF THE [place] IN LAST 30 DAYS: No - Related Data Allergies/Adverse Reactions: lisinopril Allergy (Verified 12/03/19 18:24) ibuprofen [From Motrin] Adverse Reaction (Verified 08/16/20 09:57) vancomycin Adverse Reaction (Verified 08/16/20 09:57) Past Medical History - General Information source: Patient - Social History Smoking Status: Never Smoker Cigarette use (# per day): No Chew tobacco use (# tins/day): No Smoking Education Provided: No Lives with: Spouse/Significant other Family History: Reviewed & Not Pertinent Patient has suicidal ideation: No Patient has homicidal ideation: No - Past Medical History Cardiac Medical History: Reports: Hx Hypercholesterolemia, Hx Hypertension Endocrine Medical History: Reports: Hx Diabetes Mellitus Type 2 Past Surgical History: Reports: Hx Abdominal Surgery - gastric sleeve, Hx Dilation and Curettage - 05/2020 Review of Systems - Review of Systems Constitutional: See HPI. denies: Chills, Fever EENT: No symptoms reported Cardiovascular: No symptoms reported Respiratory: No symptoms reported Gastrointestinal: See HPI, Abdominal pain, Nausea. denies: Vomiting Genitourinary: No symptoms reported Female Genitourinary: See HPI, Last menstrual period - 06/22/2020, , Vaginal bleeding Musculoskeletal: See HPI. denies: Back pain Skin: No symptoms reported Hematologic/Lymphatic: No symptoms reported Neurological/Psychological: No symptoms reported -: Yes All other systems reviewed and negative Physical Exam - Vital signs Vitals: Temp Pulse Resp BP Pulse Ox 98.8 F 74 16 169/92 H 99 08/16/20 09:55 08/16/20 09:55 08/16/20 09:55 08/16/20 09:55 08/16/20 09:55 - General General appearance: Alert In distress: None - HEENT Head: Normocephalic, Atraumatic Eyes: Normal Pupils: PERRL - Respiratory Respiratory status: No respiratory distress Chest status: Nontender Breath sounds: Normal Chest palpation: Normal - Cardiovascular Rhythm: Regular Heart sounds: Normal auscultation Murmur: No Friction rub: No Gallop: None auscultated - Abdominal Inspection: Obese Distension: No distension Bowel sounds: Normal Tenderness: Nontender - Abdomen soft Organomegaly: No organomegaly - Back Back: Normal, Nontender - Extremities General upper extremity: Normal inspection General lower extremity: Normal inspection. No: Edema - Neurological Neuro grossly intact: Yes Orientation: AAOx4 Zoraida Coma Scale Eye Opening: Spontaneous Zoraida Coma Scale Verbal: Oriented Zoraida Coma Scale Motor: Obeys Commands Virgil Coma Scale Total: 15 - Psychological Associated symptoms: Normal affect, Normal mood - Skin Skin Temperature: Warm Skin Moisture: Dry Skin Color: Normal Course - Re-evaluation Re-evalutation: 08/16/20 12:41 Discussed with patient regarding live intrauterine noted 7 weeks 3 days on ultrasound. No evidence of any subchorionic bleed heart tone rate was 162. - Vital Signs Vital signs: Temp Pulse Resp BP Pulse Ox 98.8 F 74 16 169/92 H 99 08/16/20 09:55 08/16/20 09:55 08/16/20 09:55 08/16/20 09:55 08/16/20 09:55 08/16/20 12:42 Vital signs stable blood pressure appears elevated at 169/92. This should be repeated prior to discharge. - Laboratory Result Diagrams: 08/16/20 10:22 08/16/20 10:22 Laboratory results interpreted by me: 08/16/20 08/16/20 08/16/20 10:22 10:22 10:22 Hgb 10.8 L Hct 33.4 L RDW 16.1 H BUN 6 L Serum HCG, Qual POSITIVE H Beta HCG, Quant Urine Protein Urine Blood Urine Urobilinogen Ur Leukocyte Esterase 08/16/20 08/16/20 10:22 11:20 Hgb Hct RDW BUN Serum HCG, Qual Beta HCG, Quant 58342.00 H Urine Protein 30 H Urine Blood LARGE H Urine Urobilinogen 4.0 H Ur Leukocyte Esterase LARGE H Laboratories show a beta-hCG quantitative 95,805. Large blood was noted in urine as patient presented with complaints of vaginal bleeding since last p.m. Patient's blood type is a positive therefore does not require any RhoGam treatment. - Diagnostic Test Radiology reviewed: Image reviewed, Reports reviewed Radiology results interpreted by me: 08/16/20 12:38 Transvaginal US 08/16/20 10:11 IMPRESSION: LIVING INTRAUTERINE . EGA 7 weeks and 3 days Trimester of : First trimester - 0 to 13 weeks. 08/16/20 12:44 Transvaginal ultrasound shows a live intrauterine intrauterine 7 weeks 3 days. Discharge - Discharge Clinical Impression: Threatened miscarriage in early Condition: Stable Disposition: HOME, SELF-CARE Instructions: Threatened Miscarriage ([facility]) Additional Instructions: Threatened Miscarriage You have been evaluated for a possible miscarriage. At this time, there is no indication that a miscarriage will occur. Most women with your symptoms will go on to have a perfectly normal baby. However, careful observation will be necessary. A miscarriage occurs when the fetus is abnormal. There is no medicine or t reatment for it. You should rest in bed until the symptoms have resolved. Do not douche or have sex for at least a week, or until OK'd by the doctor. Call the doctor or return for re-examination if there is an increase in bleeding or cramping, or passage of tissue. Keep your appointment that you have with your [facility]INNER doctor on 08/19/2020 Referrals: EVA CULLEN MD [NO LOCAL MD] - Follow up as needed I personally performed the services described in the documentation, reviewed and edited the documentation which was dictated to the scribe in my presence, and it accurately records my words and actions.
[2020-08-16 12:55] VITALS: BP 157/90
== END 2020-08-16 12:55 | disposition home or self-care (01) ==
LOC: ER 09:52
DX: O20.0 Threatened abortion (principal); O26.891 Other specified pregnancy related conditions, first trimester; R10.9 Unspecified abdominal pain; R11.0 Nausea; O24.111 Pre-existing type 2 diabetes mellitus, in pregnancy, first trimester; E11.9 Type 2 diabetes mellitus without complications; O16.1 Unspecified maternal hypertension, first trimester; O99.841 Bariatric surgery status complicating pregnancy, first trimester; Z88.8 Allergy status to other drugs, medicaments and biological substances; Z87.59 Personal history of other complications of pregnancy, childbirth and the puerperium; Z3A.01 Less than 8 weeks gestation of pregnancy
CPT/HCPCS: 36415; 76817; 80053; 81001; 84702; 84703; 85025; 93976; 99284